=== PATIENT | male | born 1945 | race Caucasian/White ===

== ENCOUNTER 2018-04-01 10:15 | Outpatient (RCR) | payer OTHER, SELFPAY ==
--- NOTE | 2018-03-19 16:55 | PT.OPPOC ---
Current Diagnoses Chronic pain syndrome (03/19/18) Pain in right hip (03/19/18) Pain in right knee (03/19/18) Low back pain (03/19/18) Difficulty in walking, not elsewhere classified (03/19/18) Provider Visit Care Team Role Provider Type Katiuska Benitez Attending Provider Non-Staff Primary Care Provider Specialty: Medical Address: [address] [place] [address], [phone] Fax: Email: Plan Of Care PT-OP-T Assessment and Plan Start: 03/19/18 10:32 Freq: Status: Active Protocol: Document 03/19/18 10:33 SAK (Rec: 03/19/18 16:53 SAK [id number]) Physical Therapy Assessment Rehab Potential Rehabilitation Potential Good Evaluation Complexity Number of Personal Factors/Comorbidities 1-2 Number of Body Systems Impaired 4 or More Clinical Presentation at Evaluation Evolving Impairments Impairments Activity Tolerance Gait Pain Strength Goals 4 Impairment pain Nursing Home Goal (LTG) Decrease pain to no greater than 4/10 LTG Duration 3 months 3 Impairment strength Short Term Goal (STG) patient able to tolerate 45 min aquatic exercise program STG Duration 3 wks Nursing Home Goal (LTG) Patient to demonstrate improvement of strength in hips to at least 4+/5 dom LTG Duration 3 months 2 Impairment gait Structural Metal Fabricator Apprentice Goal (LTG) Patient able to ambulate community distances without a limp or increase in pain LTG Duration 3 months 1 Impairment activity tolerance Short Term Goal (STG) Patient able to stand/walk 10- 15 min without an increase in pain STG Duration 6 wks Structural Metal Fabricator Apprentice Goal (LTG) 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 Pain related to diagnosis of RA. His pain has increased recently per his report with weaning off of Vicodin, not tolerating activity without an increase in pain. He has been referred for aquatic PT at this time; feel he would benefit highly from PT to allow him to exercise in a gravity-lessened environment to decrease stress on his joints and allow increased ease of movement. Physical Therapy Plan Frequency and Duration Frequency of Treatment 2x/Week Duration of Treatment 3 months Plan of Care Start Date 03/19/18 Plan of Care End Date 06/17/18 Therapeutic Interventions Therapeutic Interventions Aquatic Therapy Patient/Caregiver Education Self-Care/Home Management Next Visit Focus/Plan Next Note Type Treatment Note Next Visit Plan Initiate aquatic therapy. Plan of Care Dates Plan of Care Start Date 03/19/18 Plan of Care End Date 06/17/18 Please Sign and Return: I have reviewed this Plan of Care and certify that the skilled therapy services above are required to meet the patient?s needs. Physician Signature Date Printed Name and Credentials Clinical Instructor Signature Printed Name and Credentials
--- NOTE | 2018-03-19 16:55 | PT.OIE ---
Current Diagnoses Chronic pain syndrome (03/19/18) Pain in right hip (03/19/18) Pain in right knee (03/19/18) Low back pain (03/19/18) Difficulty in walking, not elsewhere classified (03/19/18) Provider Visit Care Team Role Provider Type Katiuska Benitez Attending Provider Non-Staff Primary Care Provider Specialty: Medical Address: [address] [place] [address], [phone] Fax: Email: Physical Therapy Initial Evaluation PT-OP-A Visit Information Start: 03/19/18 10:32 Freq: Status: Active Protocol: Document 03/19/18 10:33 SAK (Rec: 03/19/18 14:29 SAK [id number]) Out-Patient Physical Therapy Visit Information Visit Information Visit Type Initial Evaluation Visit Start Time 10:33 Visit Stop Time 11:08 Total Visit Minutes 35 Visit Number 1 Number of CYBER INSTRUCTOR Visits 0 Evaluation Information Evaluation Date 03/17/18 Precautions Precautions history of prostate CA, history of dom SUSAN, history 3 back surgeries. PT-OP-B Current Condition Start: 03/19/18 10:32 Freq: Status: Active Protocol: Document 03/19/18 10:33 SAK (Rec: 03/19/18 11:20 SAK [id number]) Current Condition History of Current Condition Onset Date 1999 Current Complaints LBP, right buttock and hip pain, right knee pain History of Current Condition Diagnosed with RA in 1999, gradually noting increase in pain above regions. History of 3 back surgeries. History of bilateral SUSAN: left 15 years ago, right 7-8 years. States right hip has been problematic since the surgery. Reports he has always exercised , uses elliptical though reports hasn't exercised in about 3 wks due to pain, difficult to get motivated due to increase in pain. Sitting position best, (right leg crossed over left relieves hip pain) sleep difficult; uses pillow between his legs, mostly lays on left side. Prior Treatments and Tests 2 SUSAN, 3 back surgeries (no fusion), Vicodin for 18 yrs; states he is being weaned off by physician, trying Acetaminophen, not effective. Also on Methotrexate. 3 shots in right knee over the past year. Prostate cancer. dom SUSAN . Treatment Goals Patient/Caregiver Goals Decreased pain, able to play golf, stand and walk easier. Prior Functional Status Baseline Function- ADL's Independent Baseline Function- Mobility Independent Baseline Function- Gait indep, no device Baseline Function- Recreation/Hobbies golf, work in shop Current Functional Impairments (Reported) Functional Limitations- ADL's painful Functional Limitations- Mobility/Gait painful Functional Limitations- Recreation/ unable due to pain Hobbies PT-OP-C Subjective Start: 03/19/18 10:32 Freq: Status: Active Protocol: Document 03/19/18 10:33 SAK (Rec: 03/19/18 16:53 [facility] [id number]) Patient Questionnaires Lower Extremity Functional Scale LEFS Score 44 LEFS Impairment 40 to 59% Impaired (Score 32- 47) Oswestry Low Back Index Oswestry Score 38 Oswestry Impairment 20 to 39% Impaired (Score 20- 39) OP-PT Pain Assessment Pain Assessment Grid Paper Pain Assessment Grid Completed Yes Location dom hands Intensity 3 left shoulder Intensity 3 right shoulder Intensity 5 right knee Intensity 5 LB, right buttock Intensity 6 Comments Pain Comments States he could manage the pain with 3-4 Vicodin daily. Current acetaminophen not adequate. PT-OP-E Functional Tests Start: 03/19/18 10:32 Freq: Status: Active Protocol: Document 03/19/18 10:33 SAK (Rec: 03/19/18 16:53 [facility] [id number]) Functional Tests Squat Test Comments unable due to knee pain PT-OP-G Mobility & Gait Start: 03/19/18 10:32 Freq: Status: Active Protocol: Document 03/19/18 10:33 SAK (Rec: 03/19/18 16:53 [facility] [id number]) OP Mobility Evaluation Functional Movements Lifting and Carrying unable Squats unable OP Gait Assessment Gait Gait Assistance Required: Independent Assistive Devices Assistive Device None Gait Deviations General Gait Pattern Antalgic PT-OP-H Neuro Start: 03/19/18 10:32 Freq: Status: Active Protocol: Document 03/19/18 10:33 SAK (Rec: 03/19/18 16:53 [facility] [id number]) Sensation Evaluation Gross Sensation Gross Sensation Left UE Impaired Sensation Description Paresthesia Deep Tendon Reflex & Clonus Assessment Deep Tendon Reflex Bilateral Achilles Deep Tendon Reflex 0 Absent Bilateral Patellar Deep Tendon Reflex 0 Absent PT-OP-J Posture/Palpation/Skin Start: 03/19/18 10:32 Freq: Status: Active Protocol: Document 03/19/18 10:33 SAK (Rec: 03/19/18 16:53 [facility] [id number]) Posture Evaluation Position Standing Head/C-Spine Posture Flexed T-Spine Posture Flattened Thorax Posture (L) Prominent L-Spine Posture Flattened Decreased Lordosis Flexed Pelvis Posture Posterior Tilted Weight Distribution Weight Shifted Left Knee Posture (R) Genu Varus Palpation Assessment Location lumbar spine Palpation Findings Soft Tissue Tightness Muscle Guarding PT-OP-K Range of Motion Start: 03/19/18 10:32 Freq: Status: Active Protocol: Document 03/19/18 10:33 [facility] (Rec: 03/19/18 16:53 [facility] [id number]) Lumbar Spine Range of Motion Lumbar Spine Active Flexion 40 Extension 15 Rotation Left 20 Rotation Right 25 Lateral Flexion Left 30 Lateral Flexion Right 15 ROM Limitations Soft Tissue Tightness Pain Shoulder Goniometric Range of Motion Shoulder ROM Limitations Shoulder ROM Limitations Pain Comments not tested due to time constraints, focus today on lumbar spine and LE's Hip Goniometric Range of Motion Hip Measured in Degrees Left Hip ROM WFL No Testing Position Supine Flexion w/Knee Flexed 100 Straight Leg Raise 55 Extension 5 Internal Rotation 20 External Rotation 30 Right Hip ROM WFL No Testing Position Supine Flexion w/Knee Flexed 90 Straight Leg Raise 60 Extension 0 Internal Rotation 20 External Rotation 15 Hip ROM Limitations Hip ROM Limitations Pain Knee Goniometric Range of Motion Knee Measured in Degrees Left Knee ROM WFL Yes Patient Position Sitting Right Patient Position Sitting Flexion Active (degrees) 120 Extension Active (degrees) 7 Knee ROM Limitations Knee ROM Limitations Contracture Pain Ankle and Foot Goniometric Range of Motion Ankle and Foot Measured in Degrees dom Ankle/Foot ROM WFL Yes PT-OP-M Strength Start: 03/19/18 10:32 Freq: Status: Active Protocol: Document 03/19/18 10:33 ABHIJEET (Rec: 03/19/18 16:53 [facility] [id number]) Trunk Strength Trunk Manual Muscle Testing Reason Not Measured Pain Hip Strength Hip Manual Muscle Testing Left Flexion (L2) 4 Good Extension (S1) 4- Good- Abduction 4- Good- External Rotation 4- Good- Internal Rotation 4 Good Right Flexion (L2) 3+ Fair+ Extension (S1) 3- Fair- Abduction 3- Fair- External Rotation 3+ Fair+ Internal Rotation 4 Good Comments painful with all resisted mostions Knee Strength Knee Manual Muscle Testing Left Flexion (S2) 5 Normal Extension (L3) 5 Normal Right Flexion (S2) 4- Good- Extension (L3) 4+ Good+ Ankle/Foot Strength Ankle and Foot Manual Muscle Testing Left Dorsiflexion (L4) 5 Normal Plantarflexion (S1) 5 Normal Right Dorsiflexion (L4) 5 Normal Plantarflexion (S1) 5 Normal PT-OP-T Assessment and Plan Start: 03/19/18 10:32 Freq: Status: Active Protocol: Document 03/19/18 10:33 ABHIJEET (Rec: 03/19/18 16:53 [facility] [id number]) Physical Therapy Assessment Rehab Potential Rehabilitation Potential Good Evaluation Complexity Number of Personal Factors/Comorbidities 1-2 Number of Body Systems Impaired 4 or More Clinical Presentation at Evaluation Evolving Impairments Impairments Activity Tolerance Gait Pain Strength Goals 4 Impairment pain [facility] Goal (LTG) Decrease pain to no greater than 4/10 LTG Duration 3 months 3 Impairment strength Short Term Goal (STG) patient able to tolerate 45 min aquatic exercise program STG Duration 3 wks [facility] Goal (LTG) Patient to demonstrate improvement of strength in hips to at least 4+/5 dom LTG Duration 3 months 2 Impairment gait [facility] Goal (LTG) Patient able to ambulate community distances without a limp or increase in pain LTG Duration 3 months 1 Impairment activity tolerance Short Term Goal (STG) Patient able to stand/walk 10- 15 min without an increase in pain STG Duration 6 wks Registered Nurse Bone Marrow Transplant Goal (LTG) 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 Pain related to diagnosis of RA. His pain has increased recently per his report with weaning off of Vicodin, not tolerating activity without an increase in pain. He has been referred for aquatic PT at this time; feel he would benefit highly from PT to allow him to exercise in a gravity-lessened environment to decrease stress on his joints and allow increased ease of movement. Physical Therapy Plan Frequency and Duration Frequency of Treatment 2x/Week Duration of Treatment 3 months Plan of Care Start Date 03/19/18 Plan of Care End Date 06/17/18 Therapeutic Interventions Therapeutic Interventions Aquatic Therapy Patient/Caregiver Education Self-Care/Home Management Next Visit Focus/Plan Next Note Type Treatment Note Next Visit Plan Initiate aquatic therapy.
--- NOTE | 2018-03-22 17:24 | PT.OTN ---
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 PT-OP-B Current Condition Start: 03/19/18 10:32 Freq: Status: Active Protocol: Document 03/19/18 10:33 SAK (Rec: 03/19/18 11:20 SAK [id number]) Current Condition History of Current Condition Onset Date 1999 Current Complaints LBP, right buttock and hip pain, right knee pain History of Current Condition Diagnosed with RA in 1999, gradually noting increase in pain above regions. History of 3 back surgeries. History of bilateral SUSAN: left 15 years ago, right 7-8 years. States right hip has been problematic since the surgery. Reports he has always exercised , uses elliptical though reports hasn't exercised in about 3 wks due to pain, difficult to get motivated due to increase in pain. Sitting position best, (right leg crossed over left relieves hip pain) sleep difficult; uses pillow between his legs, mostly lays on left side. Prior Treatments and Tests 2 SUSAN, 3 back surgeries (no fusion), Vicodin for 18 yrs; states he is being weaned off by physician, trying Acetaminophen, not effective. Also on Methotrexate. 3 shots in right knee over the past year. Prostate cancer. dom SUSAN . Treatment Goals Patient/Caregiver Goals Decreased pain, able to play golf, stand and walk easier. Prior Functional Status Baseline Function- ADL's Independent Baseline Function- Mobility Independent Baseline Function- Gait indep, no device Baseline Function- Recreation/Hobbies golf, work in shop Current Functional Impairments (Reported) Functional Limitations- ADL's painful Functional Limitations- Mobility/Gait painful Functional Limitations- Recreation/ unable due to pain Hobbies PT-OP-C Subjective Start: 03/19/18 10:32 Freq: Status: Active Protocol: Document 03/20/18 10:15 SAK (Rec: 03/22/18 17:23 SAK [id number]) OP-PT Subjective Patient Comments Patient Comments Patient reports no increase in pain after evaluation. Ready to start aquatic PT, comfortable in water. PT-OP-E Functional Tests Start: 03/19/18 10:32 Freq: Status: Active Protocol: Document 03/19/18 10:33 SAK (Rec: 03/19/18 16:53 [facility] [id number]) Functional Tests Squat Test Comments unable due to knee pain PT-OP-G Mobility & Gait Start: 03/19/18 10:32 Freq: Status: Active Protocol: Document 03/19/18 10:33 SAK (Rec: 03/19/18 16:53 [facility] [id number]) OP Mobility Evaluation Functional Movements Lifting and Carrying unable Squats unable OP Gait Assessment Gait Gait Assistance Required: Independent Assistive Devices Assistive Device None Gait Deviations General Gait Pattern Antalgic PT-OP-H Neuro Start: 03/19/18 10:32 Freq: Status: Active Protocol: Document 03/19/18 10:33 SAK (Rec: 03/19/18 16:53 [facility] [id number]) Sensation Evaluation Gross Sensation Gross Sensation Left UE Impaired Sensation Description Paresthesia Deep Tendon Reflex & Clonus Assessment Deep Tendon Reflex Bilateral Achilles Deep Tendon Reflex 0 Absent Bilateral Patellar Deep Tendon Reflex 0 Absent PT-OP-J Posture/Palpation/Skin Start: 03/19/18 10:32 Freq: Status: Active Protocol: Document 03/19/18 10:33 SAK (Rec: 03/19/18 16:53 [facility] [id number]) Posture Evaluation Position Standing Head/C-Spine Posture Flexed T-Spine Posture Flattened Thorax Posture (L) Prominent L-Spine Posture Flattened Decreased Lordosis Flexed Pelvis Posture Posterior Tilted Weight Distribution Weight Shifted Left Knee Posture (R) Genu Varus Palpation Assessment Location lumbar spine Palpation Findings Soft Tissue Tightness Muscle Guarding PT-OP-K Range of Motion Start: 03/19/18 10:32 Freq: Status: Active Protocol: Document 03/19/18 10:33 SAK (Rec: 03/19/18 16:53 [facility] [id number]) Lumbar Spine Range of Motion Lumbar Spine Active Flexion 40 Extension 15 Rotation Left 20 Rotation Right 25 Lateral Flexion Left 30 Lateral Flexion Right 15 ROM Limitations Soft Tissue Tightness Pain Shoulder Goniometric Range of Motion Shoulder ROM Limitations Shoulder ROM Limitations Pain Comments not tested due to time constraints, focus today on lumbar spine and LE's Hip Goniometric Range of Motion Hip Measured in Degrees Left Hip ROM WFL No Testing Position Supine Flexion w/Knee Flexed 100 Straight Leg Raise 55 Extension 5 Internal Rotation 20 External Rotation 30 Right Hip ROM WFL No Testing Position Supine Flexion w/Knee Flexed 90 Straight Leg Raise 60 Extension 0 Internal Rotation 20 External Rotation 15 Hip ROM Limitations Hip ROM Limitations Pain Knee Goniometric Range of Motion Knee Measured in Degrees Left Knee ROM WFL Yes Patient Position Sitting Right Patient Position Sitting Flexion Active (degrees) 120 Extension Active (degrees) 7 Knee ROM Limitations Knee ROM Limitations Contracture Pain Ankle and Foot Goniometric Range of Motion Ankle and Foot Measured in Degrees dom Ankle/Foot ROM WFL Yes PT-OP-M Strength Start: 03/19/18 10:32 Freq: Status: Active Protocol: Document 03/19/18 10:33 [facility] (Rec: 03/19/18 16:53 [facility] [id number]) Trunk Strength Trunk Manual Muscle Testing Reason Not Measured Pain Hip Strength Hip Manual Muscle Testing Left Flexion (L2) 4 Good Extension (S1) 4- Good- Abduction 4- Good- External Rotation 4- Good- Internal Rotation 4 Good Right Flexion (L2) 3+ Fair+ Extension (S1) 3- Fair- Abduction 3- Fair- External Rotation 3+ Fair+ Internal Rotation 4 Good Comments painful with all resisted mostions Knee Strength Knee Manual Muscle Testing Left Flexion (S2) 5 Normal Extension (L3) 5 Normal Right Flexion (S2) 4- Good- Extension (L3) 4+ Good+ Ankle/Foot Strength Ankle and Foot Manual Muscle Testing Left Dorsiflexion (L4) 5 Normal Plantarflexion (S1) 5 Normal Right Dorsiflexion (L4) 5 Normal Plantarflexion (S1) 5 Normal PT-OP-S Aquatic Treatment Start: 03/19/18 10:32 Freq: Status: Active Protocol: Document 03/20/18 10:15 SAK (Rec: 03/22/18 17:23 [facility] [id number]) Aquatics Treatment Pool Entry/Exit Pool Entry/Exit Method Stairs Assistance Standby Assistance Verbal Cues Water Walking fwd,bck,side,may, soldier may Water Level Chest Level Level of Assistance Standby Assistance Verbal Cues Lower Extremity Exercises step-ups Body Position Standing Water Level Chest Level Reps/Duration 8 boxes knee flex/ext Body Position Standing Water Level Chest Level Reps/Duration 10x hip flex/ext, ab/ad, circles Body Position Standing Water Level Chest Level Reps/Duration 5x for ROM large movements, 10x short quick Lower Extremity Stretches hamstring Body Position Standing Equipment Small Noodle Reps/Duration 2x Upper Extremity Exercises shoulder hor ab/ad Body Position Standing Equipment Small Noodle Spinal Exercises SKTC, DKTC Details at pool wall Body Position Standing Water Level [place] Reps/Duration 2x deep water hang Details at pool wall Body Position Standing Water Level [place] Reps/Duration 2 min x 2 Comments for spinal decompression [place] Activities [place] Activities Bicycle Cross Country Running Hip Abduction/Adduction Sit Kicks Equipment large noodle Duration 15 min PT-OP-T Assessment and Plan Start: 03/19/18 10:32 Freq: Status: Active Protocol: Document 03/20/18 10:15 SAK (Rec: 03/22/18 17:23 SAK [id number]) Physical Therapy Assessment Goals 4 Impairment pain Senior Living Goal (LTG) Decrease pain to no greater than 4/10 LTG Duration 3 months 3 Impairment strength Short Term Goal (STG) patient able to tolerate 45 min aquatic exercise program STG Duration 3 wks Environmental Programs Specialist Goal (LTG) Patient to demonstrate improvement of strength in hips to at least 4+/5 dom LTG Duration 3 months 2 Impairment gait Environmental Programs Specialist Goal (LTG) Patient able to ambulate community distances without a limp or increase in pain LTG Duration 3 months 1 Impairment activity tolerance Short Term Goal (STG) Patient able to stand/walk 10- 15 min without an increase in pain STG Duration 6 wks Senior Living Goal (LTG) Patient able to resume doing some light to moderate work in his shop without an increase in pain LTG Duration 3 months Assessment Summary Assessment Tolerated first aquatic PT session well, moderate verbal and manual cues for postural alignment and core stabization with all therapy activities. Denied increase in pain with session. Physical Therapy Plan Frequency and Duration Frequency of Treatment 2x/Week Duration of Treatment 3 months Plan of Care Start Date 03/19/18 Plan of Care End Date 06/17/18 Therapeutic Interventions Therapeutic Interventions Aquatic Therapy Patient/Caregiver Education Self-Care/Home Management Next Visit Focus/Plan Next Note Type Treatment Note Next Visit Plan Progress aquatic therapy activities as tolerated. Consider adding gentle supine swim.
--- NOTE | 2018-03-25 14:50 | PT.OTN ---
Current Diagnoses Chronic pain syndrome (03/25/18) Physical Therapy Treatment Note PT-OP-A Visit Information Start: 03/19/18 10:32 Freq: Status: Active Protocol: Document 03/25/18 10:15 SHELLIE (Rec: 03/25/18 14:50 LJ [id number]) Out-Patient Physical Therapy Visit Information Visit Information Visit Type Aquatic Treatment Note Visit Start Time 10:15 Visit Stop Time 11:00 Total Visit Minutes 45 Visit Number 3 Number of STATISTICIAN THEORETICAL Visits 1 PT-OP-B Current Condition Start: 03/19/18 10:32 Freq: Status: Active Protocol: Document 03/19/18 10:33 SAK (Rec: 03/19/18 11:20 SAK [id number]) Current Condition History of Current Condition Onset Date 1999 Current Complaints LBP, right buttock and hip pain, right knee pain History of Current Condition Diagnosed with RA in 1999, gradually noting increase in pain above regions. History of 3 back surgeries. History of bilateral SUSAN: left 15 years ago, right 7-8 years. States right hip has been problematic since the surgery. Reports he has always exercised , uses elliptical though reports hasn't exercised in about 3 wks due to pain, difficult to get motivated due to increase in pain. Sitting position best, (right leg crossed over left relieves hip pain) sleep difficult; uses pillow between his legs, mostly lays on left side. Prior Treatments and Tests 2 SUSAN, 3 back surgeries (no fusion), Vicodin for 18 yrs; states he is being weaned off by physician, trying Acetaminophen, not effective. Also on Methotrexate. 3 shots in right knee over the past year. Prostate cancer. dom SUSAN . Treatment Goals Patient/Caregiver Goals Decreased pain, able to play golf, stand and walk easier. Prior Functional Status Baseline Function- ADL's Independent Baseline Function- Mobility Independent Baseline Function- Gait indep, no device Baseline Function- Recreation/Hobbies golf, work in shop Current Functional Impairments (Reported) Functional Limitations- ADL's painful Functional Limitations- Mobility/Gait painful Functional Limitations- Recreation/ unable due to pain Hobbies PT-OP-C Subjective Start: 03/19/18 10:32 Freq: Status: Active Protocol: Document 03/25/18 10:15 SHELLIE (Rec: 03/25/18 14:50 SHELLIE [id number]) OP-PT Subjective Patient Comments Patient Comments Pt states he is stiff in the mornings but loosens up as the day goes on. No current complaints of unusual pain. PT-OP-E Functional Tests Start: 03/19/18 10:32 Freq: Status: Active Protocol: Document 03/19/18 10:33 SAK (Rec: 03/19/18 16:53 [facility] [id number]) Functional Tests Squat Test Comments unable due to knee pain PT-OP-G Mobility & Gait Start: 03/19/18 10:32 Freq: Status: Active Protocol: Document 03/19/18 10:33 SAK (Rec: 03/19/18 16:53 [facility] [id number]) OP Mobility Evaluation Functional Movements Lifting and Carrying unable Squats unable OP Gait Assessment Gait Gait Assistance Required: Independent Assistive Devices Assistive Device None Gait Deviations General Gait Pattern Antalgic PT-OP-H Neuro Start: 03/19/18 10:32 Freq: Status: Active Protocol: Document 03/19/18 10:33 SAK (Rec: 03/19/18 16:53 [facility] [id number]) Sensation Evaluation Gross Sensation Gross Sensation Left UE Impaired Sensation Description Paresthesia Deep Tendon Reflex & Clonus Assessment Deep Tendon Reflex Bilateral Achilles Deep Tendon Reflex 0 Absent Bilateral Patellar Deep Tendon Reflex 0 Absent PT-OP-J Posture/Palpation/Skin Start: 03/19/18 10:32 Freq: Status: Active Protocol: Document 03/19/18 10:33 SAK (Rec: 03/19/18 16:53 [facility] [id number]) Posture Evaluation Position Standing Head/C-Spine Posture Flexed T-Spine Posture Flattened Thorax Posture (L) Prominent L-Spine Posture Flattened Decreased Lordosis Flexed Pelvis Posture Posterior Tilted Weight Distribution Weight Shifted Left Knee Posture (R) Genu Varus Palpation Assessment Location lumbar spine Palpation Findings Soft Tissue Tightness Muscle Guarding PT-OP-K Range of Motion Start: 03/19/18 10:32 Freq: Status: Active Protocol: Document 03/19/18 10:33 SAK (Rec: 03/19/18 16:53 [facility] [id number]) Lumbar Spine Range of Motion Lumbar Spine Active Flexion 40 Extension 15 Rotation Left 20 Rotation Right 25 Lateral Flexion Left 30 Lateral Flexion Right 15 ROM Limitations Soft Tissue Tightness Pain Shoulder Goniometric Range of Motion Shoulder ROM Limitations Shoulder ROM Limitations Pain Comments not tested due to time constraints, focus today on lumbar spine and LE's Hip Goniometric Range of Motion Hip Measured in Degrees Left Hip ROM WFL No Testing Position Supine Flexion w/Knee Flexed 100 Straight Leg Raise 55 Extension 5 Internal Rotation 20 External Rotation 30 Right Hip ROM WFL No Testing Position Supine Flexion w/Knee Flexed 90 Straight Leg Raise 60 Extension 0 Internal Rotation 20 External Rotation 15 Hip ROM Limitations Hip ROM Limitations Pain Knee Goniometric Range of Motion Knee Measured in Degrees Left Knee ROM WFL Yes Patient Position Sitting Right Patient Position Sitting Flexion Active (degrees) 120 Extension Active (degrees) 7 Knee ROM Limitations Knee ROM Limitations Contracture Pain Ankle and Foot Goniometric Range of Motion Ankle and Foot Measured in Degrees dom Ankle/Foot ROM WFL Yes PT-OP-M Strength Start: 03/19/18 10:32 Freq: Status: Active Protocol: Document 03/19/18 10:33 SAK (Rec: 03/19/18 16:53 SAK [id number]) Trunk Strength Trunk Manual Muscle Testing Reason Not Measured Pain Hip Strength Hip Manual Muscle Testing Left Flexion (L2) 4 Good Extension (S1) 4- Good- Abduction 4- Good- External Rotation 4- Good- Internal Rotation 4 Good Right Flexion (L2) 3+ Fair+ Extension (S1) 3- Fair- Abduction 3- Fair- External Rotation 3+ Fair+ Internal Rotation 4 Good Comments painful with all resisted mostions Knee Strength Knee Manual Muscle Testing Left Flexion (S2) 5 Normal Extension (L3) 5 Normal Right Flexion (S2) 4- Good- Extension (L3) 4+ Good+ Ankle/Foot Strength Ankle and Foot Manual Muscle Testing Left Dorsiflexion (L4) 5 Normal Plantarflexion (S1) 5 Normal Right Dorsiflexion (L4) 5 Normal Plantarflexion (S1) 5 Normal PT-OP-S Aquatic Treatment Start: 03/19/18 10:32 Freq: Status: Active Protocol: Document 03/25/18 10:15 SHELLIE (Rec: 03/25/18 14:50 LJ [id number]) Aquatics Treatment Pool Entry/Exit Pool Entry/Exit Method Stairs Assistance Standby Assistance Water Walking fwd,bck,side,may, soldier may Water Level Chest Level Level of Assistance Standby Assistance Verbal Cues Lower Extremity Exercises knee flex/ext Body Position Standing Water Level Chest Level Reps/Duration 10x hip flex/ext, ab/ad, circles Body Position Standing Water Level Chest Level Reps/Duration 5x for ROM large movements, 10x short quick Lower Extremity Stretches hamstring Body Position Standing Equipment Small Noodle Reps/Duration 2x Comments manual massage of glute med Upper Extremity Exercises flex/ext Comments during forward walking, cues for shoulder relax shoulder hor ab/ad Body Position Standing Comments while sidestepping [place] Activities [place] Activities Bicycle Cross [place] Running Hip Abduction/Adduction Sit Kicks Equipment large noodle Duration 15 Comments Belt and noodle combo. Initially c/o neck pain prior to using noodle. Manual Techniques WATSU 5 min to aleviate neck pain and relax shoulders after initial deep water time w/o noodle PT-OP-T Assessment and Plan Start: 03/19/18 10:32 Freq: Status: Active Protocol: Document 03/25/18 10:15 SHELLIE (Rec: 03/25/18 14:50 SHELLIE [email or web address]) Physical Therapy Assessment Rehab Potential Rehabilitation Potential Good Evaluation Complexity Number of Personal Factors/Comorbidities 1-2 Number of Body Systems Impaired 4 or More Clinical Presentation at Evaluation Evolving Impairments Impairments Activity Tolerance Gait Pain Strength Goals 4 Impairment pain Half-Way Goal (LTG) Decrease pain to no greater than 4/10 LTG Duration 3 months 3 Impairment strength Short Term Goal (STG) patient able to tolerate 45 min aquatic exercise program STG Duration 3 wks Women'S Swim Coach Goal (LTG) Patient to demonstrate improvement of strength in hips to at least 4+/5 dom LTG Duration 3 months 2 Impairment gait Women'S Swim Coach Goal (LTG) Patient able to ambulate community distances without a limp or increase in pain LTG Duration 3 months 1 Impairment activity tolerance Short Term Goal (STG) Patient able to stand/walk 10- 15 min without an increase in pain STG Duration 6 wks Women'S Swim Coach Goal (LTG) Patient 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 Lacks some coordination and balance in water walking at this point. Physical Therapy Plan Frequency and Duration Frequency of Treatment 2x/Week Duration of Treatment 3 months Plan of Care Start Date 03/19/18 Plan of Care End Date 06/17/18 Therapeutic Interventions Therapeutic Interventions Aquatic Therapy Patient/Caregiver Education Self-Care/Home Management Next Visit Focus/Plan Next Note Type Treatment Note Next Visit Plan Progress aquatic therapy activities as tolerated. Consider adding gentle supine swim. Pt remained in pool for several minutes after session stating he was going to swim a little but did one length and left. Focus on pain reduction and strengthening of RLE
--- NOTE | 2018-04-02 08:42 | PT.OTN ---
Current Diagnoses Chronic pain syndrome (04/01/18) Physical Therapy Treatment Note PT-OP-A Visit Information Start: 03/19/18 10:32 Freq: Status: Active Protocol: Document 04/01/18 10:15 SAK (Rec: 04/02/18 08:42 [facility] [id number]) Out-Patient Physical Therapy Visit Information Visit Information Visit Type Aquatic Treatment Note Visit Start Time 10:15 Visit Stop Time 11:00 Total Visit Minutes 45 Visit Number 4 Number of TIE MAKER Visits 0 Evaluation Information Evaluation Date 03/17/18 Precautions Precautions history of prostate CA, history of dom SUSAN, history 3 back surgeries. PT-OP-B Current Condition Start: 03/19/18 10:32 Freq: Status: Active Protocol: Document 03/19/18 10:33 SAK (Rec: 03/19/18 11:20 SAK [id number]) Current Condition History of Current Condition Onset Date 1999 Current Complaints LBP, right buttock and hip pain, right knee pain History of Current Condition Diagnosed with RA in 1999, gradually noting increase in pain above regions. History of 3 back surgeries. History of bilateral SUSAN: left 15 years ago, right 7-8 years. States right hip has been problematic since the surgery. Reports he has always exercised , uses elliptical though reports hasn't exercised in about 3 wks due to pain, difficult to get motivated due to increase in pain. Sitting position best, (right leg crossed over left relieves hip pain) sleep difficult; uses pillow between his legs, mostly lays on left side. Prior Treatments and Tests 2 SUSAN, 3 back surgeries (no fusion), Vicodin for 18 yrs; states he is being weaned off by physician, trying Acetaminophen, not effective. Also on Methotrexate. 3 shots in right knee over the past year. Prostate cancer. dom SUSAN . Treatment Goals Patient/Caregiver Goals Decreased pain, able to play golf, stand and walk easier. Prior Functional Status Baseline Function- ADL's Independent Baseline Function- Mobility Independent Baseline Function- Gait indep, no device Baseline Function- Recreation/Hobbies golf, work in shop Current Functional Impairments (Reported) Functional Limitations- ADL's painful Functional Limitations- Mobility/Gait painful Functional Limitations- Recreation/ unable due to pain Hobbies PT-OP-C Subjective Start: 03/19/18 10:32 Freq: Status: Active Protocol: Document 04/01/18 10:15 SAK (Rec: 04/02/18 08:42 SAK [id number]) OP-PT Subjective Patient Comments Patient Comments Reports good tolerance to aquatic PT sessions, though pain returns or increases a few hours after getting out. PT-OP-E Functional Tests Start: 03/19/18 10:32 Freq: Status: Active Protocol: Document 03/19/18 10:33 SAK (Rec: 03/19/18 16:53 SAK [id number]) Functional Tests Squat Test Comments unable due to knee pain PT-OP-G Mobility & Gait Start: 03/19/18 10:32 Freq: Status: Active Protocol: Document 03/19/18 10:33 SAK (Rec: 03/19/18 16:53 SAK [id number]) OP Mobility Evaluation Functional Movements Lifting and Carrying unable Squats unable OP Gait Assessment Gait Gait Assistance Required: Independent Assistive Devices Assistive Device None Gait Deviations General Gait Pattern Antalgic PT-OP-H Neuro Start: 03/19/18 10:32 Freq: Status: Active Protocol: Document 03/19/18 10:33 SAK (Rec: 03/19/18 16:53 [facility] [id number]) Sensation Evaluation Gross Sensation Gross Sensation Left UE Impaired Sensation Description Paresthesia Deep Tendon Reflex & Clonus Assessment Deep Tendon Reflex Bilateral Achilles Deep Tendon Reflex 0 Absent Bilateral Patellar Deep Tendon Reflex 0 Absent PT-OP-J Posture/Palpation/Skin Start: 03/19/18 10:32 Freq: Status: Active Protocol: Document 03/19/18 10:33 SAK (Rec: 03/19/18 16:53 [facility] [id number]) Posture Evaluation Position Standing Head/C-Spine Posture Flexed T-Spine Posture Flattened Thorax Posture (L) Prominent L-Spine Posture Flattened Decreased Lordosis Flexed Pelvis Posture Posterior Tilted Weight Distribution Weight Shifted Left Knee Posture (R) Genu Varus Palpation Assessment Location lumbar spine Palpation Findings Soft Tissue Tightness Muscle Guarding PT-OP-K Range of Motion Start: 03/19/18 10:32 Freq: Status: Active Protocol: Document 03/19/18 10:33 SAK (Rec: 03/19/18 16:53 SAK [id number]) Lumbar Spine Range of Motion Lumbar Spine Active Flexion 40 Extension 15 Rotation Left 20 Rotation Right 25 Lateral Flexion Left 30 Lateral Flexion Right 15 ROM Limitations Soft Tissue Tightness Pain Shoulder Goniometric Range of Motion Shoulder ROM Limitations Shoulder ROM Limitations Pain Comments not tested due to time constraints, focus today on lumbar spine and LE's Hip Goniometric Range of Motion Hip Measured in Degrees Left Hip ROM WFL No Testing Position Supine Flexion w/Knee Flexed 100 Straight Leg Raise 55 Extension 5 Internal Rotation 20 External Rotation 30 Right Hip ROM WFL No Testing Position Supine Flexion w/Knee Flexed 90 Straight Leg Raise 60 Extension 0 Internal Rotation 20 External Rotation 15 Hip ROM Limitations Hip ROM Limitations Pain Knee Goniometric Range of Motion Knee Measured in Degrees Left Knee ROM WFL Yes Patient Position Sitting Right Patient Position Sitting Flexion Active (degrees) 120 Extension Active (degrees) 7 Knee ROM Limitations Knee ROM Limitations Contracture Pain Ankle and Foot Goniometric Range of Motion Ankle and Foot Measured in Degrees dom Ankle/Foot ROM WFL Yes PT-OP-M Strength Start: 03/19/18 10:32 Freq: Status: Active Protocol: Document 03/19/18 10:33 [facility] (Rec: 03/19/18 16:53 [facility] [id number]) Trunk Strength Trunk Manual Muscle Testing Reason Not Measured Pain Hip Strength Hip Manual Muscle Testing Left Flexion (L2) 4 Good Extension (S1) 4- Good- Abduction 4- Good- External Rotation 4- Good- Internal Rotation 4 Good Right Flexion (L2) 3+ Fair+ Extension (S1) 3- Fair- Abduction 3- Fair- External Rotation 3+ Fair+ Internal Rotation 4 Good Comments painful with all resisted mostions Knee Strength Knee Manual Muscle Testing Left Flexion (S2) 5 Normal Extension (L3) 5 Normal Right Flexion (S2) 4- Good- Extension (L3) 4+ Good+ Ankle/Foot Strength Ankle and Foot Manual Muscle Testing Left Dorsiflexion (L4) 5 Normal Plantarflexion (S1) 5 Normal Right Dorsiflexion (L4) 5 Normal Plantarflexion (S1) 5 Normal PT-OP-S Aquatic Treatment Start: 03/19/18 10:32 Freq: Status: Active Protocol: Document 04/01/18 10:15 SAK (Rec: 04/02/18 08:42 [facility] [id number]) Aquatics Treatment Pool Entry/Exit Pool Entry/Exit Method Stairs Assistance Standby Assistance Water Walking fwd,bck,side,may, soldier may Water Level Chest Level Level of Assistance Standby Assistance Verbal Cues Lower Extremity Exercises step-ups Body Position Standing Water Level Chest Level Reps/Duration 8 boxes knee flex/ext Body Position Standing Water Level Chest Level Reps/Duration 10x hip flex/ext, ab/ad, circles Body Position Standing Water Level Chest Level Reps/Duration 5x for ROM large movements, 10x short quick Lower Extremity Stretches ITB, add Body Position Standing Equipment Small Noodle quads Body Position Standing Equipment Small Noodle hamstring Body Position Standing Equipment Small Noodle Reps/Duration 2x Spinal Exercises SKTC, DKTC Details at pool wall Body Position Standing Water Level [place] Reps/Duration 2x deep water hang Details at pool wall Body Position Standing Water Level [place] Reps/Duration 2 min x 2 Comments for spinal decompression [place] Activities [place] Activities Bicycle [place] Running Hip Abduction/Adduction Sit Kicks Equipment large noodle Duration 15 Comments Belt and noodle combo. PT-OP-T Assessment and Plan Start: 03/19/18 10:32 Freq: Status: Active Protocol: Document 04/01/18 10:15 [facility] (Rec: 04/02/18 08:42 [facility] [id number]) Physical Therapy Assessment Goals 4 Impairment pain Jig Bore Tool Maker Goal (LTG) Decrease pain to no greater than 4/10 LTG Duration 3 months 3 Impairment strength Short Term Goal (STG) patient able to tolerate 45 min aquatic exercise program STG Duration 3 wks Jig Bore Tool Maker Goal (LTG) Patient to demonstrate improvement of strength in hips to at least 4+/5 dom LTG Duration 3 months 2 Impairment gait Skilled Nursing Goal (LTG) Patient able to ambulate community distances without a limp or increase in pain LTG Duration 3 months 1 Impairment activity tolerance Short Term Goal (STG) Patient able to stand/walk 10- 15 min without an increase in pain STG Duration 6 wks Skilled Nursing Goal (LTG) Patient able to 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 Feel patient may benfit from trial of deep water traction next session. Physical Therapy Plan Frequency and Duration Frequency of Treatment 2x/Week Duration of Treatment 3 months Plan of Care Start Date 03/19/18 Plan of Care End Date 06/17/18 Therapeutic Interventions Therapeutic Interventions Aquatic Therapy Patient/Caregiver Education Self-Care/Home Management Next Visit Focus/Plan Next Note Type Treatment Note Next Visit Plan Add supine swim, trial deep water traction.
--- NOTE | 2018-07-08 13:35 | PT.OPDS ---
Current Diagnoses Chronic pain syndrome (04/01/18) Provider Visit Care Team Role Provider Type Katiuska Benitez Attending Provider Non-Staff Primary Care Provider Specialty: Medical Address: [address] [place] [address], [id number] Phone: Email: Visit Number Visit Number 4 Discharge Summary PT-OP-B Current Condition Start: 03/19/18 10:32 Freq: Status: Active Protocol: Document 03/19/18 10:33 SAK (Rec: 03/19/18 11:20 [facility] [id number]) Current Condition History of Current Condition Onset Date 1999 Current Complaints LBP, right buttock and hip pain, right knee pain History of Current Condition Diagnosed with RA in 1999, gradually noting increase in pain above regions. History of 3 back surgeries. History of bilateral SUSAN: left 15 years ago, right 7-8 years. States right hip has been problematic since the surgery. Reports he has always exercised , uses elliptical though reports hasn't exercised in about 3 wks due to pain, difficult to get motivated due to increase in pain. Sitting position best, (right leg crossed over left relieves hip pain) sleep difficult; uses pillow between his legs, mostly lays on left side. Prior Treatments and Tests 2 SUSAN, 3 back surgeries (no fusion), Vicodin for 18 yrs; states he is being weaned off by physician, trying Acetaminophen, not effective. Also on Methotrexate. 3 shots in right knee over the past year. Prostate cancer. dom SUSAN . Treatment Goals Patient/Caregiver Goals Decreased pain, able to play golf, stand and walk easier. Prior Functional Status Baseline Function- ADL's Independent Baseline Function- Mobility Independent Baseline Function- Gait indep, no device Baseline Function- Recreation/Hobbies golf, work in shop Current Functional Impairments (Reported) Functional Limitations- ADL's painful Functional Limitations- Mobility/Gait painful Functional Limitations- Recreation/ unable due to pain Hobbies PT-OP-C Subjective Start: 03/19/18 10:32 Freq: Status: Active Protocol: Document 04/01/18 10:15 SAK (Rec: 04/02/18 08:42 [facility] [id number]) OP-PT Subjective Patient Comments Patient Comments Reports good tolerance to aquatic PT sessions, though pain returns or increases a few hours after getting out. PT-OP-E Functional Tests Start: 03/19/18 10:32 Freq: Status: Active Protocol: Document 03/19/18 10:33 SAK (Rec: 03/19/18 16:53 [facility] [id number]) Functional Tests Squat Test Comments unable due to knee pain PT-OP-G Mobility & Gait Start: 03/19/18 10:32 Freq: Status: Active Protocol: Document 03/19/18 10:33 SAK (Rec: 03/19/18 16:53 SAK [id number]) OP Mobility Evaluation Functional Movements Lifting and Carrying unable Squats unable OP Gait Assessment Gait Gait Assistance Required: Independent Assistive Devices Assistive Device None Gait Deviations General Gait Pattern Antalgic PT-OP-H Neuro Start: 03/19/18 10:32 Freq: Status: Active Protocol: Document 03/19/18 10:33 SAK (Rec: 03/19/18 16:53 SAK [id number]) Sensation Evaluation Gross Sensation Gross Sensation Left UE Impaired Sensation Description Paresthesia Deep Tendon Reflex & Clonus Assessment Deep Tendon Reflex Bilateral Achilles Deep Tendon Reflex 0 Absent Bilateral Patellar Deep Tendon Reflex 0 Absent PT-OP-J Posture/Palpation/Skin Start: 03/19/18 10:32 Freq: Status: Active Protocol: Document 03/19/18 10:33 SAK (Rec: 03/19/18 16:53 [facility] [id number]) Posture Evaluation Position Standing Head/C-Spine Posture Flexed T-Spine Posture Flattened Thorax Posture (L) Prominent L-Spine Posture Flattened Decreased Lordosis Flexed Pelvis Posture Posterior Tilted Weight Distribution Weight Shifted Left Knee Posture (R) Genu Varus Palpation Assessment Location lumbar spine Palpation Findings Soft Tissue Tightness Muscle Guarding PT-OP-K Range of Motion Start: 03/19/18 10:32 Freq: Status: Active Protocol: Document 03/19/18 10:33 SAK (Rec: 03/19/18 16:53 [facility] [id number]) Lumbar Spine Range of Motion Lumbar Spine Active Flexion 40 Extension 15 Rotation Left 20 Rotation Right 25 Lateral Flexion Left 30 Lateral Flexion Right 15 ROM Limitations Soft Tissue Tightness Pain Shoulder Goniometric Range of Motion Shoulder ROM Limitations Shoulder ROM Limitations Pain Comments not tested due to time constraints, focus today on lumbar spine and LE's Hip Goniometric Range of Motion Hip Measured in Degrees Left Hip ROM WFL No Testing Position Supine Flexion w/Knee Flexed 100 Straight Leg Raise 55 Extension 5 Internal Rotation 20 External Rotation 30 Right Hip ROM WFL No Testing Position Supine Flexion w/Knee Flexed 90 Straight Leg Raise 60 Extension 0 Internal Rotation 20 External Rotation 15 Hip ROM Limitations Hip ROM Limitations Pain Knee Goniometric Range of Motion Knee Measured in Degrees Left Knee ROM WFL Yes Patient Position Sitting Right Patient Position Sitting Flexion Active (degrees) 120 Extension Active (degrees) 7 Knee ROM Limitations Knee ROM Limitations Contracture Pain Ankle and Foot Goniometric Range of Motion Ankle and Foot Measured in Degrees dom Ankle/Foot ROM WFL Yes PT-OP-M Strength Start: 03/19/18 10:32 Freq: Status: Active Protocol: Document 03/19/18 10:33 [facility] (Rec: 03/19/18 16:53 [facility] [id number]) Trunk Strength Trunk Manual Muscle Testing Reason Not Measured Pain Hip Strength Hip Manual Muscle Testing Left Flexion (L2) 4 Good Extension (S1) 4- Good- Abduction 4- Good- External Rotation 4- Good- Internal Rotation 4 Good Right Flexion (L2) 3+ Fair+ Extension (S1) 3- Fair- Abduction 3- Fair- External Rotation 3+ Fair+ Internal Rotation 4 Good Comments painful with all resisted mostions Knee Strength Knee Manual Muscle Testing Left Flexion (S2) 5 Normal Extension (L3) 5 Normal Right Flexion (S2) 4- Good- Extension (L3) 4+ Good+ Ankle/Foot Strength Ankle and Foot Manual Muscle Testing Left Dorsiflexion (L4) 5 Normal Plantarflexion (S1) 5 Normal Right Dorsiflexion (L4) 5 Normal Plantarflexion (S1) 5 Normal PT-OP-T Assessment and Plan Start: 03/19/18 10:32 Freq: Status: Active Protocol: Document 07/08/18 13:33 [email or web address] (Rec: 07/08/18 13:35 [facility] [id number]) Physical Therapy Plan Discharge Physical Therapy Discharge Reasons No Longer Attending PT
== END 2018-07-23 15:11 | disposition home or self-care (01) ==
LOC: PHYS 10:15
PROVIDERS: PCP Internal Medicine; Visit Provider Internal Medicine
DX: G89.4 Chronic pain syndrome (principal)
CPT/HCPCS: 97113; 97162